=== PATIENT | male | born 1995 | race Caucasian/White ===

== ENCOUNTER 2017-01-12 08:15 | Emergency (ER) | payer OTHER ==
[2017-01-12 08:21] VITALS: PULSE 74; TEMP 98.1
[2017-01-12 08:58] LABS: % IMMATURE GRANULYOCYTES 0.6 % (0.0-1.1); ABSOLUTE IMMATURE GRANULOCYTES 0.13 10^3/uL (0.00-0.10); ADD DIFF? NO; ADD MORPH? NO; ADD SCAN? YES; FRAGMENT RBC FLAG 0 (0-99); HEMATOCRIT 42.5 % (40.0-51.0); HEMOGLOBIN 15.5 g/dL (13.7-17.5); LEFT SHIFT FLG 0 (0-99); LIPEMIA HEMOLYSIS FLAG 90 (0-99); MEAN CELL HEMOGLOBIN 30.8 pg (27.9-34.1); MEAN CELL HEMOGLOBIN CONCENTR. 36.5 g/dL (32.4-36.7); MEAN CELL VOLUME 84.5 fL (81.5-99.8); MEAN PLATELET VOLUME 9.3 fL (8.7-11.7); PLATELET CLUMPS FLAG 0 (0-99); PLATELET COUNT 191 10^3/uL (150-400); RED BLOOD CELL COUNT 5.03 10^6/uL (4.40-6.38); RED CELL DISTRIBUTION WIDTH 12.3 % (11.5-15.2)
[2017-01-12 08:59] LABS: ATYPICAL LYMPHOCYTE FLAG 300 (0-99)
[2017-01-12 09:03] LABS: MUCUS 1+ /lpf (NONE-1+)
[2017-01-12 09:08] LABS: SCAN POSITIVE
[2017-01-12 09:09] LABS: COLOR AMBER; LEUKOCYTE ESTERASE,URINE NEGATIVE (NEGATIVE); NITRITE,URINE NEGATIVE (NEGATIVE); RBC,URINE NONE SEEN /hpf (0-3)
[2017-01-12 09:14] LABS: ANION GAP 15 mEq/L (8-16); CARBON DIOXIDE 25 mEq/l (22-31); CHLORIDE 101 mEq/L (97-110); CREATININE 0.8 mg/dL (0.7-1.3); GLOMERULAR FILTRATION RATE > 60; GLUCOSE 88 mg/dL (70-100); SODIUM 141 mEq/L (134-144)
--- NOTE | 2017-01-12 09:35 | EDPHY ---
H & P Stated Complaint: 10 days/low back pain/sore throat/saw [place] pcp x2 dx viral inf Time Seen by Provider: 01/12/17 08:27 HPI/ROS: Chief complaint: Cold symptoms History of present illness: 21-year-old male presents to the emergency department for cold symptoms. He reports he has been sick for the last 10 days. He has had sore throat, facial congestion and headache in this region, swollen glands, back pain and fatigue. He initially saw his primary care doctor and was diagnosed with musculoskeletal pain and then followed up again and was diagnosed with a viral illness. He states he is concerned that he has been sick for so long. He denies other associated signs or symptoms including no chest congestion, no cough, no difficulty breathing, no rash. Review of systems: A 10 point review of systems was obtained and other than described above was negative - Personal History Current Tetanus/Diphtheria Vaccine: Yes - Medical/Surgical History Hx Asthma: No Hx Chronic Respiratory Disease: No Hx Diabetes: No Hx Cardiac Disease: No Hx Renal Disease: No Hx Cirrhosis: No Hx Alcoholism: No Hx HIV/AIDS: No Hx Splenectomy or Spleen Trauma: No Other PMH: umbilicalhernia surgery - Social History Smoking Status: Never smoked - Physical Exam Exam: General Appearance: Alert, nontoxic. Eyes: Pupils equal and round no pallor or injection. ENT, Mouth: Tympanic membranes, external auditory canals, external ears and surrounding soft tissue including over the mastoids are unremarkable. Nasopharynx is mildly injected. There is mild clear rhinorrhea. Oropharynx is injected. There is no edema. There is no exudate. There is no asymmetry. The uvula is midline. No elevation of the tongue. There is no hoarseness, no drooling, no trismus, no stridor. Lymph: Bilateral tender adenopathy both sides of the neck and jaw Respiratory: There are no retractions, lungs are clear to auscultation. Cardiovascular: Regular rate and rhythm. Gastrointestinal: Abdomen is soft and non tender, no masses, bowel sounds normal. Neurological: Alert and oriented x4. Strength and sensation intact and symmetrical. No meningismus. Skin: Warm and dry, no rashes. Musculoskeletal: Neck is supple non tender. Extremities are symmetrical, full range of motion. Psychiatric: Patient is oriented X 3, there is no agitation. Constitutional: Initial Vital Signs Temperature (C) 36.7 C 01/12/17 08:19 Heart Rate 74 01/12/17 08:19 Respiratory Rate 20 01/12/17 08:19 Blood Pressure 109/54 L 01/12/17 08:19 O2 Sat (%) 97 01/12/17 08:19 O2 Delivery Mode Room Air Allergies/Adverse Reactions: No Known Allergies Allergy (Unverified 01/12/17 08:18) Home Medications: Medication Instructions Recorded NK [No Known Home Meds] 01/12/17 Medical Decision Making ED Course/Re-evaluation: Patient is discussed with my secondary supervising physician Dr. Norbert Bellamy. Patient presents to the emergency department essentially with cold- like symptoms. He is nontoxic. Afebrile and vital signs are stable. Evaluation does reveal a significant leukocytosis. Further he appears to be mono positive and does have a respiratory screen with rhino/enterovirus. Again he is nontoxic. I believe he is appropriate for outpatient management. Patient is discharged home. Home care is discussed including avoiding physical activity that could result in trauma given potential splenic enlargement from mono. He is asked to follow up with his primary care doctor this week for recheck. Return precautions are given. Patient voiced understanding and agreement with plan. Differential Diagnosis: Included but not limited to pharyngitis, strep pharyngitis, mononucleosis, influenza, urinary tract disorders - Data Points Laboratory Results: Laboratory Results 01/12/17 08:45 01/12/17 08:45 01/12/17 01/12/17 01/12/17 Unknown 08:45 08:45 WBC RBC Hgb Hct MCV MCH MCHC RDW Plt Count MPV Neut % (Auto) Lymph % (Auto) [place] % (Auto) Eos % (Auto) Baso % (Auto) Nucleat RBC Rel Count Absolute Neuts (auto) Absolute Lymphs (auto) Absolute Monos (auto) Absolute Eos (auto) Absolute Basos (auto) Absolute Nucleated RBC Immature Gran % Seg Neutrophils % Lymphocytes % Monocytes % Immature Gran # Absolute Seg Neuts Absolute Lymphocytes Absolute Monocytes RBC/WBC/PLT Morphology Atypical Lymphocytes Platelet Estimate Smear Review By Sodium Potassium Chloride Carbon Dioxide Anion Gap BUN Creatinine Estimated GFR Glucose Calcium Urine Color LEDA Urine Appearance CLEAR Urine pH 7.0 (5.0-7.5) Ur Specific [place] 1.018 (1.002-1.030) Urine Protein NEGATIVE (NEGATIVE) Urine Ketones TRACE H (NEGATIVE) Urine Blood NEGATIVE (NEGATIVE) Urine Nitrate NEGATIVE (NEGATIVE) Urine Bilirubin NEGATIVE (NEGATIVE) Urine Urobilinogen 4.0 EU H EU (0.2-1.0) Ur Leukocyte Esterase NEGATIVE (NEGATIVE) Urine RBC NONE SEEN /hpf /hpf (0-3) Urine WBC 1-3 /hpf /hpf (0-3) Ur Epithelial Cells NONE SEEN /lpf /lpf (NONE-1+) Urine Mucus 1+ /lpf /lpf (NONE-1+) Urine Glucose NEGATIVE (NEGATIVE) Monoscreen Group A Strep Screen NEGATIVE (NEGATIVE) Group A Strep DNA Pending 01/12/17 01/12/17 01/12/17 08:45 08:45 08:45 WBC 22.93 10^3/uL H 10^3/uL (3.80-9.50) RBC 5.03 10^6/uL 10^6/uL (4.40-6.38) Hgb 15.5 g/dL g/dL (13.7-17.5) Hct 42.5 % % (40.0-51.0) MCV 84.5 fL fL (81.5-99.8) MCH 30.8 pg pg (27.9-34.1) MCHC 36.5 g/dL g/dL (32.4-36.7) RDW 12.3 % % (11.5-15.2) Plt Count 191 10^3/uL 10^3/uL (150-400) MPV 9.3 fL fL (8.7-11.7) Neut % (Auto) 16.9 % L % (39.3-74.2) Lymph % (Auto) 72.4 % H % (15.0-45.0) [place] % (Auto) 9.4 % % (4.5-13.0) Eos % (Auto) 0.3 % L % (0.6-7.6) Baso % (Auto) 0.4 % % (0.3-1.7) Nucleat RBC Rel Count 0.0 % % (0.0-0.2) Absolute Neuts (auto) 3.90 10^3/uL 10^3/uL (1.70-6.50) Absolute Lymphs (auto) 16.59 10^3/uL H 10^3/uL (1.00-3.00) Absolute Monos (auto) 2.16 10^3/uL H 10^3/uL (0.30-0.80) Absolute Eos (auto) 0.06 10^3/uL 10^3/uL (0.03-0.40) Absolute Basos (auto) 0.09 10^3/uL 10^3/uL (0.02-0.10) Absolute Nucleated RBC 0.00 10^3/uL 10^3/uL (0-0.01) Immature Gran % 0.6 % % (0.0-1.1) Seg Neutrophils % 14 % % Lymphocytes % 81 % % Monocytes % 5 % % Immature Gran # 0.13 10^3/uL H 10^3/uL (0.00-0.10) Absolute Seg Neuts 3.21 10^/uL 10^/uL (1.70-6.50) Absolute Lymphocytes 18.57 10^3/uL H 10^3/uL (1.00-3.00) Absolute Monocytes 1.15 10^3/uL H 10^3/uL (0.30-0.80) RBC/WBC/PLT Morphology NORMAL (NORMAL) Atypical Lymphocytes 3+ H Platelet Estimate ADEQUATE (ADEQ) Smear Review By Pending Sodium 141 mEq/L mEq/L (134-144) Potassium 4.0 mEq/L mEq/L (3.5-5.2) Chloride 101 mEq/L mEq/L (97-110) Carbon Dioxide 25 mEq/l mEq/l (22-31) Anion Gap 15 mEq/L mEq/L (8-16) BUN 8 mg/dL mg/dL (7-23) Creatinine 0.8 mg/dL mg/dL (0.7-1.3) Estimated GFR > 60 Glucose 88 mg/dL mg/dL (70-100) Calcium 10.0 mg/dL mg/dL (8.5-10.4) Urine Color Urine Appearance Urine pH Ur Specific [place] Urine Protein Urine Ketones Urine Blood Urine Nitrate Urine Bilirubin Urine Urobilinogen Ur Leukocyte Esterase Urine RBC Urine WBC Ur Epithelial Cells Urine Mucus Urine Glucose Monoscreen POSITIVE H (NEGATIVE) Group A Strep Screen Group A Strep DNA Microbiology Results: MICROBIOLOGY 01/12/17 08:45 Nasal, Sinus - [place] Viral Transport Respiratory Panel ( PCR) - Final Human Rhinovirus/Enterovirus Departure - Departure Disposition: Home, Routine, Self-Care Clinical Impression: Mononucleosis Condition: Good Instructions: Mononucleosis (ED) Additional Instructions: Your Monospot was positive today Follow-up with her primary care doctor this week for recheck Please let your primary care doctor know [place] [id number] so that he can recheck it Avoid physical activity that could result in trauma to the abdomen and until cleared by your doctor If symptoms worsen or new symptoms develop return to the emergency room for recheck Referrals: BENIGNO,CYNTHIA [Other] - As per Instructions
[2017-01-12 09:41] LABS: PLATELET ESTIMATE ADEQUATE (ADEQ)
[2017-01-12 09:53] VITALS: BP 119/59; RESP 16; O2SAT 96
== END 2017-01-12 09:53 | disposition home or self-care (01) ==
DX: B27.90 Infectious mononucleosis, unspecified without complication (principal)